=== PATIENT | female | born 1995 | race Caucasian/White ===

== ENCOUNTER 2020-06-01 16:07 | Emergency (ER) | payer MEDICAID ==
[~2020-06-01] VITALS: Ht 160 cm; Wt 103.4 kg
[2020-06-01 16:17] VITALS: Ht 160 cm; Wt 103.4 kg
[2020-06-01 17:56] VITALS: BP 105/56
== END 2020-06-01 17:56 | disposition home or self-care (01) ==
LOC: ED 16:07
DX: N89.8 Other specified noninflammatory disorders of vagina (principal); R30.0 Dysuria; R39.198 Other difficulties with micturition

== ENCOUNTER 2020-07-31 21:57 | Emergency (ER) | payer MEDICAID ==
[~2020-07-31] VITALS: Ht 165.1 cm; Wt 103.4 kg
[2020-07-31 22:37] VITALS: Ht 165.1 cm; Wt 103.4 kg
[2020-08-01 01:14] VITALS: BP 112/73
== END 2020-08-01 01:14 | disposition home or self-care (01) ==
LOC: ED 21:57
DX: N76.0 Acute vaginitis (principal); Z11.3 Encounter for screening for infections with a predominantly sexual mode of transmission
CPT/HCPCS: 87491; 87591; J0696